=== PATIENT | female | born 1975 | race Hispanic/Latino ===

== ENCOUNTER 2020-11-15 20:21 | Emergency (ER) | payer SELFPAY ==
[~2020-11-15] VITALS: Ht 167.6 cm; Wt 68.0 kg
[2020-11-15] MEDS ORDERED: CASIRIVIMAB/IMDEVIMAB 10 ML in SODIUM CHLORIDE 0.9% 100 ML IV ONE (21:00)
== END 2020-11-15 22:17 | disposition home or self-care (01) ==
LOC: ER 20:51
DX: U07.1 COVID-19 (principal); R05 Cough; G35 Multiple sclerosis; M79.7 Fibromyalgia
CPT/HCPCS: 99283; J7050